=== PATIENT | male | born 1965 | race Caucasian/White ===

== ENCOUNTER 2020-08-27 16:20 | Emergency (ER) | payer MEDICARE, OTHER ==
[~2020-08-27 16:20] MED LIST: BENTYL 20MG TAB20 MG PO; FLOMAX0.4 MG PO; IBUPROFEN600 MG PO; LODINE CAP 300300 MG PO; NORCO 5-325 TA1 EACH PO; PERCOCET 5/325 T1 EA PO; PROCARDIA XL90 MG PO; SIMVASTATIN10 MG PO; SYNTHROID125 MCG PO; TORADOL 10 MG T10 MG PO; VOLTAREN EC 7575 MG PO; ZESTRIL40 MG PO; ZOFRAN ODT 4 MG4 MG PO; ZOLOFT25 MG PO; ZYLOPRIM 100 M100 MG PO
[2020-08-27 16:44] LABS: HEMOGLOBIN 15.9 gm/dl (14.0-17.5); RED BLOOD COUNT 5.2 M/UL (4.20-5.50); WHITE BLOOD COUNT 6.1 K/UL (4.5-11.0)
[2020-08-27 17:02] LABS: BUN/CREATININE RATIO 18 (0-10)
[2020-08-27] MEDS ORDERED: NAPROSYN500 MG PO (18:15)
== END 2020-08-27 18:28 | disposition home or self-care (01) ==
LOC: ER1 16:20
PROVIDERS: Physician Assistant
DX: R10.9 Unspecified abdominal pain (principal); R74.01 Elevation of levels of liver transaminase levels; E11.65 Type 2 diabetes mellitus with hyperglycemia; J44.9 Chronic obstructive pulmonary disease, unspecified; Z87.442 Personal history of urinary calculi; Z90.89 Acquired absence of other organs; Z88.5 Allergy status to narcotic agent; Z88.1 Allergy status to other antibiotic agents
CPT/HCPCS: 80053; 81001; 85025; 87086; 96374; 96375; 99284; J1885; J2405

== ENCOUNTER 2021-07-14 18:00 | Emergency (ER) | payer MEDICARE ==
[~2021-07-14 18:00] MED LIST changes: +NAPROSYN500 MG PO
[2021-07-14 19:03] LABS: HEMOGLOBIN 15.2 gm/dl (14.0-17.5); RED BLOOD COUNT 4.89 M/UL (4.20-5.50); WHITE BLOOD COUNT 7.5 K/UL (4.5-11.0)
[2021-07-14] MEDS ORDERED: PERCOCET 5/325 T1 EA PO (21:27)
== END 2021-07-14 21:25 | disposition home or self-care (01) ==
LOC: ER1 18:00
PROVIDERS: Physician Assistant
DX: M54.50 Low back pain, unspecified (principal); Z88.5 Allergy status to narcotic agent; Z88.1 Allergy status to other antibiotic agents
CPT/HCPCS: 80053; 81001; 85025; 96374; 99284; J2270